=== PATIENT | female | born 1945 | race Caucasian/White ===

== ENCOUNTER 2017-10-10 09:12 | Day surgery (SDC) | payer MEDICARE, OTHER ==
[~2017-10-10] VITALS: Ht 165.1 cm; Wt 63.1 kg
[~2017-10-10 09:12] MED LIST: BUPIVACAINE/PF 0.25% ONE
[2017-10-10] MEDS ORDERED: MIDAZOLAM 1 MG/ML, 2ML ONE (10:08)
[2017-10-10] MEDS ORDERED: FENTANYL PF 250 MCG/5ML ONE (10:17)
[2017-10-10] MEDS ORDERED: METO25TA35 PO (10:31)
[2017-10-10] MEDS ORDERED: ATOR20TA9 PO (10:31)
[2017-10-10] MEDS ORDERED: ASPI-496 PO (10:31)
[2017-10-10] MEDS ORDERED: LACTATED RINGERS 1,000 ML IV SCH (10:36)
[2017-10-10 10:38] LABS: BASOPHILS # (AUTO) 0.03 x10^3/uL (0-0.1); BASOPHILS % (AUTO) 0 % (0-1); EOSINOPHILS # (AUTO) 0.24 x10^3/uL (0-0.4); EOSINOPHILS % (AUTO) 3 % (1-7); LYMPHOCYTES # (AUTO) 2.13 x10^3/uL (1-3.4); LYMPHOCYTES % (AUTO) 25 % (22-44); MD NO; MEAN CORPUSCULAR HEMOGLOBIN 29.8 pg (27.0-34.8); MEAN CORPUSCULAR HGB CONC 33.5 g/dL (32.4-35.8); MEAN CORPUSCULAR VOLUME 88.9 fL (80-100); MEAN PLATELET VOLUME 8.6 fL (7.4-10.4); MONOCYTES # (AUTO) 0.52 x10^3/uL (0.2-0.8); MONOCYTES % (AUTO) 6 % (2-9); NEUTROPHILS # (AUTO) 5.72 x10^3/uL (1.8-6.8); NEUTROPHILS % (AUTO) 66 % (42-75); PLATELET COUNT 254 x10^3/uL (130-400); RED BLOOD COUNT 5.41 x10^6/uL (3.82-5.3); RED CELL DISTRIBUTION WIDTH 15.1 % (9.6-15.2)
[2017-10-10 10:45] VITALS: BP 138/85
[2017-10-10] MEDS ORDERED: ACETAMINOPHEN 500 MG TABLET ONE (10:47)
[2017-10-10] MEDS ORDERED: GABAPENTIN 300 MG CAPSULE ONE (10:48)
[2017-10-10] MEDS ORDERED: LIDOCAINE-MPF 1%, 2ML INFIL ONE (11:00)
[2017-10-10] MEDS ORDERED: ACETAMINOPHEN 500 MG TABLET PO ONE (11:00)
[2017-10-10] MEDS ORDERED: GABAPENTIN 300 MG CAPSULE PO ONE (11:00)
[2017-10-10] MEDS ORDERED: PLEASE ENTER HEIGHT AND WEIGHT MC SCH (11:00)
[2017-10-10] MEDS ORDERED: ONDANSETRON 2MG/ML, 2ML ONE (11:13)
[2017-10-10] MEDS ORDERED: SUCCINYLCHOLINE 20 MG/ML, 10ML ONE (11:13)
[2017-10-10] MEDS ORDERED: LIDOCAINE-MPF 2% ,5ML ONE (11:13)
[2017-10-10] MEDS ORDERED: PROPOFOL 10 MG/ML, 20ML ONE (11:13)
[2017-10-10] MEDS ORDERED: DEXAMETHASONE 4 MG/ML, 1ML ONE (11:13)
[2017-10-10] MEDS ORDERED: NEOSTIGMINE 1 MG/ML, 10ML ONE (11:13)
[2017-10-10] MEDS ORDERED: GLYCOPYRROLATE 0.2MG/1ML, 5ML ONE (11:13)
[2017-10-10] MEDS ORDERED: CEFAZOLIN 1,000 MG ONE (11:13)
[2017-10-10] MEDS ORDERED: PHENYLEPHRINE 10 MG/ML ONE (11:13)
[2017-10-10] MEDS ORDERED: ROCURONIUM 10MG/ML,5ML ONE (11:13)
[2017-10-10] MEDS ORDERED: ALBUTEROL SULFATE 200 PUFFS/8.5 GR INH ONE (11:13)
[2017-10-10] MEDS ORDERED: MEPERIDINE/PF 25MG/0.5ML IVPush PRN (11:30)
[2017-10-10] MEDS ORDERED: PROMETHAZINE 12.5 MG SUPP PR PRN (11:30)
[2017-10-10] MEDS ORDERED: ALBUTEROL/IPRATROPIUM 2.5MG/0.5MG, 3 ML NPPB PRN (11:30)
[2017-10-10] MEDS ORDERED: ONDANSETRON 2MG/ML, 2ML IVPush PRN (11:30)
[2017-10-10] MEDS ORDERED: HYDROcodone/APAP 7.5-325MG/15ML UDC PO PRN (11:30)
[2017-10-10] MEDS ORDERED: FENTANYL PF 100 MCG/2ML IV PRN (11:30)
[2017-10-10] MEDS ORDERED: morphine SULFATE 10 MG/ML, 1ML IV PRN (11:30)
[2017-10-10] MEDS ORDERED: ACETAMINOPHEN 325 MG TABLET PO PRN (11:30)
[2017-10-10] MEDS ORDERED: PROMETHAZINE 25 MG/ML, 1ML IV PRN (11:30)
[2017-10-10] MEDS ORDERED: OXYcodone 5 MG/5 ML ORAL.SOL UDC PO PRN (11:30)
[2017-10-10] MEDS ORDERED: LORazepam 2 MG/ML, 1ML IVPush PRN (11:30)
[2017-10-10] MEDS ORDERED: hydrALAzine 20 MG/ML, 1ML IV PRN (11:30)
[2017-10-10] MEDS ORDERED: LABETALOL 5MG/ML, 20ML IV PRN (11:30)
[2017-10-10 12:45] LABS: INTERNATIONAL NORMALIZED RATIO 0.97 (0.93-1.1); PROTHROMBIN TIME 10.1 Seconds (9.6-11.5)
[2017-10-10 12:52] LABS: ALANINE AMINOTRANSFERASE 14 U/L (12-78); ALBUMIN 3.7 g/dL (3.4-5.0); ANION GAP 6 mmol/L (5-15); CALCIUM 9.4 mg/dL (8.5-10.1); CHLORIDE 108 mmol/L (98-107); CREATININE 0.72 mg/dL (0.55-1.02)
[2017-10-10 12:54] LABS: ALKALINE PHOSPHATASE 98 U/L (45-117); BILIRUBIN,TOTAL 0.8 mg/dL (0.2-1.0); TOTAL PROTEIN 8.4 g/dL (6.4-8.2)
[2017-10-10] MEDS ORDERED: OXYcodone 5 MG/5 ML ORAL.SOL UDC ONE (12:55)
[2017-10-10] MEDS ORDERED: hydrALAzine 20 MG/ML, 1ML ONE (12:55)
== END 2017-10-10 19:45 ==
LOC: OUT 09:12
PROVIDERS: ATTEND Obstetrics & Gynecology Gynecologic Oncology
DX: D28.7 Benign neoplasm of other specified female genital organs (principal); N83.8 Other noninflammatory disorders of ovary, fallopian tube and broad ligament; I25.2 Old myocardial infarction; J44.9 Chronic obstructive pulmonary disease, unspecified
CPT/HCPCS: 36415; 58661; 71045; 80053; 85025; 85610; 85730; 86304; 86850; 86900; 86923; 88305; 88331; J0330; J0360; J0690; J1100; J2250; J2370; J2405; J2704; J2710; J3010; J3490; J7120

== ENCOUNTER → 2019-01-24 | Outpatient (CLI) | payer MEDICARE, OTHER ==
[~2019-01-24] MED LIST changes: +ASPI-496 PO; +ATOR20TA37 PO; -BUPIVACAINE/PF 0.25% ONE; +METO25TA35 PO
== END | disposition home or self-care (01) ==
LOC: CVU 08:32
PROVIDERS: ATTEND Internal Medicine Cardiovascular Disease
DX: I08.8 Other rheumatic multiple valve diseases (principal); I10 Essential (primary) hypertension; I21.4 Non-ST elevation (NSTEMI) myocardial infarction; E78.5 Hyperlipidemia, unspecified; Z87.891 Personal history of nicotine dependence; I48.91 Unspecified atrial fibrillation
CPT/HCPCS: 93306

== ENCOUNTER → 2019-07-02 | Outpatient (CLI) | payer MEDICARE, OTHER ==
[~2019-07-02] MED LIST changes: +AMINOPHYLLINE 25 MG/ML, 10ML ONE; +AMIO200T42 PO; +CLOP75TA52 PO; +REGADENOSON 0.4 MG/5 ML SYRINGE ONE
== END | disposition home or self-care (01) ==
LOC: CFH 08:26
PROVIDERS: ATTEND Internal Medicine Cardiovascular Disease
DX: I25.10 Atherosclerotic heart disease of native coronary artery without angina pectoris (principal); R94.31 Abnormal electrocardiogram [ECG] [EKG]
CPT/HCPCS: 78452; 93017; A9502; J0280; J2785

== ENCOUNTER → 2020-03-03 | Outpatient (CLI) | payer MEDICARE ==
[~2020-03-03] MED LIST changes: -AMINOPHYLLINE 25 MG/ML, 10ML ONE; -REGADENOSON 0.4 MG/5 ML SYRINGE ONE
== END | disposition home or self-care (01) ==
LOC: CFH 08:26
PROVIDERS: ATTEND Internal Medicine Cardiovascular Disease
DX: I08.3 Combined rheumatic disorders of mitral, aortic and tricuspid valves (principal); R07.9 Chest pain, unspecified; R94.31 Abnormal electrocardiogram [ECG] [EKG]
CPT/HCPCS: 93306

== ENCOUNTER → 2021-03-05 | Outpatient (CLI) | payer MEDICARE | END | disposition home or self-care (01) | LOC: CFH 10:40 | PROVIDERS: ATTEND Internal Medicine Cardiovascular Disease | DX: I08.8 Other rheumatic multiple valve diseases (principal); I48.91 Unspecified atrial fibrillation; I11.9 Hypertensive heart disease without heart failure | CPT/HCPCS: 93306; 93356 ==